=== PATIENT | female | born 1990 | race African-American/Black ===

== ENCOUNTER 2022-04-27 17:21 | Emergency (ER) | payer SELFPAY ==
[~2022-04-27] VITALS: Ht 162.6 cm; Wt 91.0 kg
[2022-04-27 20:38] LABS: CHLORIDE 106 mEq/L (98-107); HEMATOCRIT. 29.6 % (36.0-48.0); HEMOGLOBIN. 8.7 g/dL (12.0-16.0); MEAN CORPUSCULAR HEMOGLOBIN 18.6 pg (28.0-32.0); MEAN CORPUSCULAR VOLUME 63.2 fL (81.0-99.0); MEAN PLATELET VOLUME 9.3 fl (7.4-10.4); PLATELET 380 x1000/uL (130-400); RED BLOOD CELL COUNT 4.68 mill/uL (4.2-5.4)
[2022-04-27 20:44] LABS: HCG SCREEN NEGATIVE
[2022-04-27 22:09] LABS: PLATELET ESTIMATE NORMAL
[2022-04-28 01:29] LABS: CLARITY URINE TURBID (CLEAR); COLOR URINE ORANGE (YELLOW); KETONES URINE NEGATIVE (NEGATIVE); LEUKOCYTE ESTERASE URINE NEGATIVE (NEGATIVE); NITRITE URINE NEGATIVE (NEGATIVE); OCCULT BLOOD URINE NEGATIVE (NEGATIVE); PH URINE 5.5 (4.5-8.0); PROTEIN URINE 1+ (NEGATIVE); SPECIFIC GRAVITY URINE 1.031 (1.005-1.030); UROBILINOGEN URINE 0.2 E.U./dL (0.2-1.0)
[2022-04-28] MEDS ORDERED: IBUPROFEN 600MG TABLET PO ONE (02:00)
[2022-04-28] MEDS ORDERED: ONDANSETRON 4MG ODT PO ONE (02:15)
[2022-04-28 02:22] VITALS: BP 132/83
[2022-04-28] MEDS ORDERED: SODIUM CHLORIDE 0.9% 1,000 ML IV ONE (02:45)
== END 2022-04-28 05:24 | disposition home or self-care (01) ==
LOC: ER 17:21
DX: D64.9 Anemia, unspecified (principal); R51.9 Headache, unspecified; R11.2 Nausea with vomiting, unspecified
CPT/HCPCS: 36415; 80053; 81003; 81025; 83690; 84703; 85025; 96360; 99283; J7030; Q0162; Z7610

== ENCOUNTER 2023-03-02 12:05 | Emergency (ER) | payer MEDICAID, OTHER ==
[~2023-03-02] VITALS: Ht 165.1 cm; Wt 68.0 kg
[2023-03-02 12:10] VITALS: O2SAT 100
[2023-03-02 17:33] VITALS: BP 121/85; PULSE 73; RESP 16; TEMP 99.1
== END 2023-03-02 17:39 | disposition home or self-care (01) ==
LOC: ER 12:05
DX: N63.0 Unspecified lump in unspecified breast (principal)
CPT/HCPCS: 76641; 99284

== ENCOUNTER 2023-03-08 13:43 | Emergency (ER) | payer OTHER ==
[~2023-03-08] VITALS: Ht 162.6 cm; Wt 81.0 kg
[2023-03-08 13:51] VITALS: TEMP 98.1; O2SAT 99
[2023-03-08 14:16] LABS: CLARITY URINE CLOUDY (CLEAR); COLOR URINE DARK YELLOW (YELLOW); GLUCOSE URINE NEGATIVE (NEGATIVE); KETONES URINE TRACE (NEGATIVE); LEUKOCYTE ESTERASE URINE NEGATIVE (NEGATIVE); NITRITE URINE NEGATIVE (NEGATIVE); OCCULT BLOOD URINE NEGATIVE (NEGATIVE); PH URINE 6.5 (4.5-8.0); PROTEIN URINE 1+ (NEGATIVE); SPECIFIC GRAVITY URINE 1.032 (1.005-1.030)
[2023-03-08 14:29] LABS: BACTERIA URINE 2+; SQUAMOUS EPITHELIAL CELL URINE 3+ /lpf (RARE/1+); YEAST URINE NONE SEEN
[2023-03-08] MEDS ORDERED: MECLIZINE 25MG TABLET PO ONE (14:30)
[2023-03-08] MEDS ORDERED: ACETAMINOPHEN 650MG/20.3ML UDC PO ONE (14:30)
[2023-03-08] MEDS ORDERED: IBUPROFEN 100MG/5ML UDC PO ONE (14:30)
[2023-03-08] MEDS ORDERED: ONDANSETRON 4MG/5ML UDC PO ONE (16:45)
[2023-03-08] MEDS ORDERED: MECLIZINE 12.5MG TABLET PO NR (17:15)
[2023-03-08] MEDS ORDERED: ONDANSETRON 4MG/5ML UDC PO NR (17:15)
[2023-03-08] MEDS ORDERED: ACETAMINOPHEN 650MG/20.3ML UDC PO NR (17:15)
[2023-03-08] MEDS ORDERED: IBUPROFEN 100MG/5ML UDC PO NR (17:15)
[2023-03-08] MEDS ORDERED: ONDA4TAB11 PO (18:33)
[2023-03-08] MEDS ORDERED: ONDANSETRON HCL 4MG/2ML INJ IV ONE (19:15)
[2023-03-08] MEDS ORDERED: SODIUM CHLORIDE 0.9% 1,000 ML IV ONE (19:15)
[2023-03-08 19:58] LABS: BASOPHILS % 0.6 % (0.0-2.0); EOSINOPHILS % 0.2 % (0.0-5.0); HEMATOCRIT. 39.9 % (36.0-48.0); HEMOGLOBIN. 12.4 g/dL (12.0-16.0); LYMPHOCYTES % 11.6 % (20.0-50.0); MEAN CORPUSCULAR HEMOGLOBIN 26.4 pg (28.0-32.0); MEAN CORPUSCULAR HGB CONC 31.1 g/dL (31.0-37.0); MEAN CORPUSCULAR VOLUME 85.1 fL (81.0-99.0); MEAN PLATELET VOLUME 9.7 fl (7.4-10.4); MONOCYTES % 5.3 % (2.0-8.0); NEUTROPHILS % 82.3 % (40.0-76.0); PLATELET 322 x1000/uL (130-400); RED BLOOD CELL COUNT 4.69 mill/uL (4.2-5.4); RED CELL DISTRIBUTION WIDTH 14.9 % (11.6-14.6); WHITE BLOOD COUNT 10.2 x1000/uL (4.5-11.0)
[2023-03-08 20:07] LABS: ALANINE AMINOTRANSFERASE 9 IU/L (10-49); ALBUMIN 4.4 g/dL (3.2-4.8); ASPARTATE AMINOTRANSFERASE 18 IU/L (<34); BILIRUBIN TOTAL 0.4 mg/dL (0.1-1.0); CALCIUM 9.4 mg/dL (8.7-10.4); CARBON DIOXIDE 25 mEq/L (21-32); CHLORIDE 104 mEq/L (98-107); CREATININE 0.7 mg/dL (0.6-1.0); GLUCOSE 103 mg/dL (70-105); PHOSPHORUS 3.5 mg/dL (2.5-4.9); POTASSIUM 3.8 mEq/L (3.5-5.1); PROTEIN TOTAL 8.4 g/dL (6.0-8.3); SODIUM 137 mEq/L (136-145); UREA NITROGEN BLOOD 10 mg/dL (9-23)
[2023-03-08 20:44] LABS: HCG SCREEN NEGATIVE
[2023-03-08 21:13] VITALS: BP 110/65; PULSE 61; RESP 16
== END 2023-03-08 21:15 | disposition home or self-care (01) ==
LOC: ER 13:43
DX: R42 Dizziness and giddiness (principal); H92.02 Otalgia, left ear
CPT/HCPCS: 36415; 80053; 81003; 81025; 83735; 84100; 84703; 85025; 93005; 96361; 96374; 99284; J2405; J7030; J8597